=== PATIENT | female | born 1965 | race Caucasian/White ===

== ENCOUNTER 2021-10-14 16:00 | Emergency (ER) | payer OTHER ==
[~2021-10-14] VITALS: Ht 167.7 cm; Wt 81.6 kg
[2021-10-14 16:36] LABS: BASOPHILS % (AUTO) 0 % (0-10); EOSINOPHILS # (AUTO) 0.1 10^3/uL (0.0-0.3); EOSINOPHILS % (AUTO) 1 % (0-10); HEMATOCRIT 43 % (35-52); HEMOGLOBIN 14.5 g/dL (11.5-16.0); LYMPHOCYTES # (AUTO) 2.8 10^3/uL (1.0-4.0); LYMPHOCYTES % (AUTO) 26 % (12-44); MEAN CORPUSCULAR HEMOGLOBIN 30 pg (25-34); MEAN CORPUSCULAR HGB CONC 33 g/dL (32-36); MEAN CORPUSCULAR VOLUME 91 fL (80-99); MEAN PLATELET VOLUME 9.4 fL (9.0-12.2); MONOCYTES # (AUTO) 0.6 10^3/uL (0.0-1.0); MONOCYTES % (AUTO) 6 % (0-12); NEUTROPHILS % (AUTO) 67 % (42-75); PLATELET COUNT 360 10^3/uL (130-400); WHITE BLOOD COUNT 10.5 10^3/uL (4.3-11.0)
[2021-10-14 16:39] LABS: BILIRUBIN,URINE NEGATIVE (NEGATIVE); CLARITY,URINE CLEAR; COLOR,URINE YELLOW; GLUCOSE, URINE (UA) NEGATIVE (NEGATIVE); KETONES,URINE NEGATIVE (NEGATIVE); LEUKOCYTE ESTERASE ,URINE NEGATIVE (NEGATIVE); NITRITE,URINE NEGATIVE (NEGATIVE); PROTEIN,URINE NEGATIVE (NEGATIVE)
[2021-10-14 16:43] LABS: ALBUMIN 4.5 GM/DL (3.2-4.5); CHLORIDE 103 MMOL/L (98-107); POTASSIUM 3.6 MMOL/L (3.6-5.0); SODIUM 140 MMOL/L (135-145)
[2021-10-14 16:44] LABS: CALCIUM 9.7 MG/DL (8.5-10.1)
[2021-10-14 16:45] LABS: GLUCOSE 104 MG/DL (70-105)
[2021-10-14 16:46] LABS: CARBON DIOXIDE 24 MMOL/L (21-32); TOTAL PROTEIN 8.1 GM/DL (6.4-8.2)
[2021-10-14 16:47] LABS: BILIRUBIN,TOTAL 0.8 MG/DL (0.1-1.0)
[2021-10-14 16:49] LABS: ALKALINE PHOSPHATASE 47 U/L (40-136); CREATININE SERUM 0.83 MG/DL (0.60-1.30); GFR ESTIMATED 71
[2021-10-14 16:49] LABS: BACTERIA,URINE NEGATIVE /HPF; SQUAMOUS EPITHELIAL CELL,UR 0-2 /HPF; WBC,URINE 0-2 /HPF
[2021-10-14 16:50] LABS: AMPHETAMINE SCREEN, URINE POSITIVE (NEGATIVE); BARBITURATE SCREEN URINE NEGATIVE (NEGATIVE); BENZODIAZEPINES SCREEN URINE NEGATIVE (NEGATIVE); CANNABINOID SCREEN, URINE NEGATIVE (NEGATIVE); COCAINE SCREEN URINE NEGATIVE (NEGATIVE); METHADONE STAT NEGATIVE (NEGATIVE); METHAMPHETAMINE SCREEN URINE S POSITIVE (NEGATIVE); OPIATE SCREEN URINE NEGATIVE (NEGATIVE); OXYCODONE STAT NEGATIVE (NEGATIVE); PROPOXYPHENE STAT NEGATIVE (NEGATIVE); TRICYCLIC ANTIDEPRESSANTS SCRE NEGATIVE (NEGATIVE)
[2021-10-14 16:50] LABS: BUN/CREATININE RATIO 12
[2021-10-14 16:52] LABS: ALANINE AMINOTRANSFERASE 24 U/L (0-55)
[2021-10-14 18:04] LABS: URIC ACID 5.1 MG/DL (2.6-7.2)
--- NOTE | 2021-10-14 18:12 | Diagnostic Imaging Report ---
CLINICAL HISTORY: Left ankle pain. COMPARISON: None. TECHNIQUE: Three views of the left ankle. FINDINGS: Small osseous fragment is seen at the distal aspect of the medial malleolus. The left ankle joint is well aligned without evidence of dislocation. The imaged joint spaces are preserved. Bone spurs are seen along the calcaneus. IMPRESSION: 1. Possible avulsion fracture at the medial malleolus. No evidence of dislocation of the left ankle. 2. Calcaneal bone spurs. Dictated by: Dictated on workstation # [id number]
--- NOTE | 2021-10-14 18:54 | ED General ---
General Chief Complaint: General Problems/Pain Stated Complaint: L ANKLE PAIN Nursing Triage Note: PT TO FT 1 VIA [facility]. PT ADVISES SHE HAS LEFT ANKLE PAIN AND WOULD LIKE TO KNOW IF SHE HAD A STROKE 2 MONTHS AGO. LEFT ANKLE APPEARS SLIGHTLY SWOLLEN. PT LIVES IN [place] AND HAS BEEN WALKING FOR TRANSPORTATION AROUND [place]. PT ADMITTEDLY DRINKS DAILY AND USES "ANY DRUG I CAN GET MY HANDS ON." PT APPEARS INTOXICATED DURING TRIAGE. A&OX4. Source of Information: Patient Exam Limitations: No Limitations History of Present Illness Date Seen by Provider: Oct 14, 2021 Time Seen by Provider: 16:07 Initial Comments This 56 year old woman presents to the ER from the local [facility] were she thought she might be having a stroke. She complains of low back pain that radiates to the left leg. She also has pain and swelling in the left ankle. She does not recall injuring her ankle. She drinks alcohol daily and admits to using methamphetamine recently. She lives in [place] and is traveling in the area. Allergies and Home Medications Patient Home Medication List Home Medication List Reviewed: Yes Review of Systems Review of Systems Constitutional: see HPI EENTM: no symptoms reported Respiratory: no symptoms reported Cardiovascular: no symptoms reported Gastrointestinal: no symptoms reported Genitourinary: no symptoms reported : No Musculoskeletal: see HPI Skin: no symptoms reported Psychiatric/Neurological: No Symptoms Reported Hematologic/Lymphatic: No Symptoms Reported Immunological/Allergic: no symptoms reported Past Gdzdfjl-Fqyxew-Pdrklw Hx Patient Social History Tobacco Use?: Yes Tobacco type used: Cigarettes Smoking Status: Current Everyday Smoker Use of E-Cig and/or Vaping dev: No Substance use?: Yes Substance type: Methamphetamine, Hallucinogens, Marijuana, Other Additional substance use comme: [facility] Alcohol Use?: Yes Alcohol type: Hard Liquor Alcohol Frequency: Daily Immunizations Up To Date Influenza Vaccine Up-to-Date: No; Not Current First/Initial COVID19 Vaccinat: 2020 Second COVID19 Vaccination [place]: 2020 COVID19 Vaccine [place]: [id number] Past Medical History Surgeries: No (none reported) Respiratory: No Cardiac: Yes High Cholesterol, Hypertension Neurological: Yes Stroke (stated history) : No Reproductive Disorders: No Genitourinary: No Gastrointestinal: No Musculoskeletal: Yes Arthritis Endocrine: No HEENT: No Cancer: No Psychosocial: Yes (polysubstance abuse) Integumentary: No Physical Exam Vital Signs Vital Signs - First Documented 10/14/21 16:00 Temp 36.6 Pulse 73 Resp 22 B/P (MAP) 152/88 (109) Pulse Ox 98 O2 Delivery Room Air Capillary Refill : Less Than 3 Seconds Height, Weight, BMI Height: '" Weight: lbs. oz. kg; 29.00 BMI Method: General Appearance: No Apparent Distress, WD/WN HEENT: PERRL/EOMI, Normal ENT Inspection Neck: Normal Inspection Respiratory: Lungs Clear, Normal Breath Sounds, No Accessory Muscle Use Cardiovascular: Regular Rate, Rhythm, No Murmur Gastrointestinal: Non Tender, Soft Extremity: No Calf Tenderness, Other (generalized tenderness and erythema of the left ankle. 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 Patient is a rather distracted historian.) Skin: Normal Color, Warm/Dry, Other (mild erythema of the left ankle.) Progress/Results/Core Measures Suspected Sepsis SIRS Temperature: Pulse: 73 Respiratory Rate: 22 Laboratory Tests 10/14/21 16:30: White Blood Count 10.5 Blood Pressure 152 /88 Mean: 109 Laboratory Tests 10/14/21 16:30: Creatinine 0.83, Platelet Count 360, Total Bilirubin 0.8 Results/Orders Lab Results Laboratory Tests Test 10/14/21 16:30 10/14/21 16:32 Range/Units White Blood Count 10.5 4.3-11.0 10^3/uL Red Blood Count 4.79 3.80-5.11 10^6/uL Hemoglobin 14.5 11.5-16.0 g/dL Hematocrit 43 35-52 % Mean Corpuscular Volume 91 80-99 fL Mean Corpuscular Hemoglobin 30 25-34 pg Mean Corpuscular Hemoglobin Concent 33 32-36 g/dL Red Cell Distribution Width 12.0 10.0-14.5 % Platelet Count 360 130-400 10^3/uL Mean Platelet Volume 9.4 9.0-12.2 fL Immature Granulocyte % (Auto) 0 % Neutrophils (%) (Auto) 67 42-75 % Lymphocytes (%) (Auto) 26 12-44 % Monocytes (%) (Auto) 6 0-12 % Eosinophils (%) (Auto) 1 0-10 % Basophils (%) (Auto) 0 0-10 % Neutrophils # (Auto) 7.0 1.8-7.8 10^3/uL Lymphocytes # (Auto) 2.8 1.0-4.0 10^3/uL Monocytes # (Auto) 0.6 0.0-1.0 10^3/uL Eosinophils # (Auto) 0.1 0.0-0.3 10^3/uL Basophils # (Auto) 0.0 0.0-0.1 10^3/uL Immature Granulocyte # (Auto) 0.0 0.0-0.1 10^3/uL Sodium Level 140 135-145 MMOL/L Potassium Level 3.6 3.6-5.0 MMOL/L Chloride Level 103 98-107 MMOL/L Carbon Dioxide Level 24 21-32 MMOL/L Anion Gap 13 5-14 MMOL/L Blood Urea Nitrogen 10 7-18 MG/DL Creatinine 0.83 0.60-1.30 MG/DL Estimat Glomerular Filtration Rate 71 BUN/Creatinine Ratio 12 Glucose Level 104 70-105 MG/DL Uric Acid 5.1 2.6-7.2 MG/DL Calcium Level 9.7 8.5-10.1 MG/DL Corrected Calcium 9.3 8.5-10.1 MG/DL Total Bilirubin 0.8 0.1-1.0 MG/DL Aspartate Amino Transf (AST/SGOT) 18 5-34 U/L Alanine Aminotransferase (ALT/SGPT) 24 0-55 U/L Alkaline Phosphatase 47 40-136 U/L C-Reactive Protein High Sensitivity 0.31 0.00-0.50 MG/DL Total Protein 8.1 6.4-8.2 GM/DL Albumin 4.5 3.2-4.5 GM/DL Serum Alcohol < 10 <10 MG/DL Urine Color YELLOW Urine Clarity CLEAR Urine pH 6.0 5-9 Urine Specific Thornton <=1.005 1.016-1.022 Urine Protein NEGATIVE NEGATIVE Urine Glucose (UA) NEGATIVE NEGATIVE Urine Ketones NEGATIVE NEGATIVE Urine Nitrite NEGATIVE NEGATIVE Urine Bilirubin NEGATIVE NEGATIVE Urine Urobilinogen 0.2 < = 1.0 MG/DL Urine Leukocyte Esterase NEGATIVE NEGATIVE Urine RBC (Auto) NEGATIVE NEGATIVE Urine RBC NONE /HPF Urine WBC 0-2 /HPF Urine Squamous Epithelial Cells 0-2 /HPF Urine Renal Epithelial Cells NONE /HPF Urine Crystals NONE /LPF Urine Bacteria NEGATIVE /HPF Urine Casts NONE /LPF Urine Mucus NEGATIVE /LPF Urine Culture Indicated NO Urine Opiates Screen NEGATIVE NEGATIVE Urine Oxycodone Screen NEGATIVE NEGATIVE Urine Methadone Screen NEGATIVE NEGATIVE Urine Propoxyphene Screen NEGATIVE NEGATIVE Urine Barbiturates Screen NEGATIVE NEGATIVE Ur Tricyclic Antidepressants Screen NEGATIVE NEGATIVE Urine Phencyclidine Screen NEGATIVE NEGATIVE Urine Amphetamines Screen POSITIVE H NEGATIVE Urine Methamphetamines Screen POSITIVE H NEGATIVE Urine Benzodiazepines Screen NEGATIVE NEGATIVE Urine Cocaine Screen NEGATIVE NEGATIVE Urine Cannabinoids Screen NEGATIVE NEGATIVE My Orders Orders - RADHA LOUIS MD Alcohol (10/14/21 16:07) Cbc With Automated Diff (10/14/21 16:07) Comprehensive Metabolic Panel (10/14/21 16:07) Drug Screen Stat (Urine) (10/14/21 16:07) Ua Culture If Indicated (10/14/21 16:07) Ed Iv/Invasive Line Start (10/14/21 16:08) Ankle, Left, 3 Views (10/14/21 17:39) Hs C Reactive Protein (10/14/21 17:39) Uric Acid (10/14/21 17:39) Vital Signs/I&O 10/14/21 10/14/21 16:00 19:06 Temp 36.6 36.8 Pulse 73 84 Resp 22 20 B/P (MAP) 152/88 (109) 136/80 Pulse Ox 98 98 O2 Delivery Room Air Room Air Capillary Refill : Less Than 3 Seconds Blood Pressure Mean: 109 Progress Note : Progress Note Labs were unremarkable except for positive drug screen. X-ray revealed avulsion fracture. Boot was dispensed. Patient requested Rx pain medications but was advised to take a combination of tylenol and ibuprofen, which she had not yet tried for her pain. She stated she normally treats her arthritis pain with alcohol. Diagnostic Imaging Diagonstic Imaging: Xray Plain Films/CT/US/NM/MRI: ankle Comments Left ankle x-ray viewed by me and report reviewed. See report below: NAME: ZOE LEVI [facility] REC#: [id number] PT STATUS: REG ER : 1965 PHYSICIAN: RADHA LOUIS MD ADMIT DATE: 10/14/21/ER Signed Date of Exam:10/14/21 ANKLE, LEFT, 3 VIEWS CLINICAL HISTORY: Left ankle pain. COMPARISON: None. TECHNIQUE: Three views of the left ankle. FINDINGS: Small osseous fragment is seen at the distal aspect of the medial malleolus. The left ankle joint is well aligned without evidence of dislocation. The imaged joint spaces are preserved. Bone spurs are seen along the calcaneus. IMPRESSION: 1. Possible avulsion fracture at the medial malleolus. No evidence of dislocation of the left ankle. 2. Calcaneal bone spurs. Dictated by: Dictated on workstation # [id number] Dict: 10/14/211808 Trans: 10/14/211816 [facility] [id number] Interpreted by: CASSI IMNOR DO Electronically signed by: CASSI MINOR DO 10/14/211816 Departure Impression Primary Impression: Avulsion fracture of medial malleolus of left tibia Qualified Codes: S82.52XA - Displaced fracture of medial malleolus of left tibia, initial encounter for closed fracture Additional Impression: Positive urine drug screen Disposition: 01 HOME, SELF-CARE Condition: Stable Departure-Patient Inst. Decision time for Depature: 18:51 Patient Instructions: Ankle Sprain Add. Discharge Instructions: Wear the boot as much as possible until you are cleared in follow-up by your primary care provider. Please establish with a primary care provider or see the [facility] as soon as possible. Rest, elevation, icing in 20-minute intervals, compressive wrapping with an Macario bandage, and wearing the boot should help with pain and swelling. Avoid strenuous activity that could exacerbate your injury. You may use Tylenol (acetaminophen) and/or ibuprofen for treatment of pain. Refrain from using illicit substances such as methamphetamine as they may make your symptoms worse. Call with questions or concerns. Return to the ER if you have worsening symptoms. All discharge instructions reviewed with patient and/or family. Voiced understanding. Work/School Note: Work Release Form Date Seen in the Emergency Department: Oct 14, 2021 Return to Work: Oct 15, 2021 Other Restrictions Listed Below: Light duty wearing boot with no ladders for 6 weeks. RADHA LOUIS MD Oct 14, 2021 18:53
[2021-10-14 19:06] VITALS: BP 136/80
== END 2021-10-14 19:06 | disposition home or self-care (01) ==
LOC: ER 16:02
DX: S82.52XA Displaced fracture of medial malleolus of left tibia, initial encounter for closed fracture (principal); R82.5 Elevated urine levels of drugs, medicaments and biological substances; F17.210 Nicotine dependence, cigarettes, uncomplicated; X58.XXXA Exposure to other specified factors, initial encounter
CPT/HCPCS: 73610; 80053; 80306; 81000; 84550; 85025; 86141; 99284; G0480; 36415; 80320